=== PATIENT | female | born 1945 | race Caucasian/White ===

== ENCOUNTER 2017-11-24 16:18 | Emergency (ER) | payer MEDICARE ==
[~2017-11-24] VITALS: Ht 154.9 cm; Wt 90.0 kg
[~2017-11-24 16:18] MED LIST: CARV12.543 PO; CHOL100011 PO; CITA20TA5 PO; ENAL20TA PO; KRIL1CAP5 PO; LOVA40TA2 PO; MULT-257 PO; TRIAMTERENE PO
[2017-11-24 16:20] VITALS: BP 155/61
[2017-11-24] MEDS ORDERED: CEFAZOLIN 1,000 MG IM ONE (16:30)
[2017-11-24] MEDS ORDERED: DIPH,PERTUSS(ACELL),TET VAC/PF 0.5 ML IM-VACC ONE ×2 (16:30→17:30)
[2017-11-24] MEDS ORDERED: CEFAZOLIN 1,000 MG ONE (17:30)
[2017-11-24] MEDS ORDERED: BACITRACIN ZINC OINT 500U/GM, 0.9 GM ONE (17:52)
== END 2017-11-24 18:24 | disposition home or self-care (01) ==
LOC: ED 18:22
DX: S60.572A Other superficial bite of hand of left hand, initial encounter (principal); L03.114 Cellulitis of left upper limb; I10 Essential (primary) hypertension; E78.5 Hyperlipidemia, unspecified; Z88.1 Allergy status to other antibiotic agents; W55.01XA Bitten by cat, initial encounter; Y93.89 Activity, other specified; Y92.009 Unspecified place in unspecified non-institutional (private) residence as the place of occurrence of the external cause; Y99.8 Other external cause status
CPT/HCPCS: 73110; 90471; 90715; 96372; 99284; J0690

== ENCOUNTER → 2020-09-21 | Outpatient (CLI) | payer MEDICARE ==
[~2020-09-21] MED LIST changes: -CITA20TA5 PO; +CITA20TA6 PO; -ENAL20TA PO; +ENAL20TA9 PO
== END | disposition home or self-care (01) ==
LOC: CARD 08:50
PROVIDERS: ATTEND Family Medicine
DX: I10 Essential (primary) hypertension (principal); R00.2 Palpitations
CPT/HCPCS: 93225; 93226

== ENCOUNTER → 2020-12-06 | Outpatient (CLI) | payer MEDICARE | END | disposition home or self-care (01) | LOC: CVU 08:22 | PROVIDERS: ATTEND Internal Medicine Cardiovascular Disease | DX: R07.9 Chest pain, unspecified (principal); I10 Essential (primary) hypertension | CPT/HCPCS: 93306; 93356 ==